=== PATIENT | female | born 1985 | race Caucasian/White ===

== ENCOUNTER 2018-05-05 00:24 | Emergency (ER) | payer OTHER ==
[~2018-05-05] VITALS: Ht 165.1 cm; Wt 81.0 kg
[~2018-05-05 00:24] MED LIST: IBUPROFEN400 MG PO; MOTRIN600 MG PO; NAPROSYN500 MG PO; PROAIR HFA8.5 GM IH
[2018-05-05 01:38] LABS: HEMATOCRIT 37.4 % (36.0-46.0); HEMOGLOBIN 13.5 G/DL (11.9-15.5); MCH 36.3 PG (29.0-34.0); MCHC 36.1 G/DL (30.0-36.0); MCV 100.5 FL (83-99); PLATELET COUNT 266 K/uL (156-360); RBC DIS.WIDTH-CV 12.3 % (11.8-14.6); RBC DIS.WIDTH-SD 45.8 % (39-53); RED BLOOD COUNT 3.72 M/uL (3.80-5.20); WHITE BLOOD COUNT 9.9 K/uL (4.1-10.2)
[2018-05-05 01:52] LABS: CHLORIDE 104 mEq/L (99-109); POTASSIUM 3.2 mEq/L (3.7-5.4); SODIUM 138 mEq/L (136-147)
[2018-05-05 01:54] LABS: GLUCOSE 112 mg/dL (70-99)
[2018-05-05 01:57] LABS: SERUM ETHYL ALCOHOL < 10 mg/dL
[2018-05-05 01:58] LABS: CREATININE 0.8 mg/dL (0.6-1.3); GFR ESTIMATE (CALCULATED) > 59 mL/min/
[2018-05-05 01:59] LABS: UREA NITROGEN (BUN) 12 mg/dL (9-23)
[2018-05-05 02:08] LABS: QUANTITATIVE HCG < 4.0 MIU/ML
[2018-05-05] MEDS ORDERED: ZOFRAN4 MG PO (03:29)
[2018-05-05 03:38] LABS: APPEARANCE CLEAR ((CLEAR)); BILIRUBIN NEGATIVE; BLOOD NEGATIVE; COLOR YELLOW ((YELLOW)); GLUCOSE (STRIP) NEGATIVE; KETONES 5; LEUKOCYTES NEGATIVE; NITRITE NEGATIVE; PROTEIN (STRIP) 100; SPECIFIC GRAVITY 1.031 (1.000-1.030); UROBILINOGEN 0.2 MG/DL (0.2-1.0)
[2018-05-05 03:46] LABS: BACTERIA NONE SEEN /HPF; EPITHELIAL CELLS 1+ /HPF; MUCUS 3+ /LPF; RED BLOOD CELLS 0-5 /HPF (0-5); UCUL ADDED? NO; WHITE BLOOD CELLS 0-5 /HPF (0-5)
[2018-05-05 04:00] VITALS: BP 104/60
== END 2018-05-05 04:00 | disposition home or self-care (01) ==
LOC: EME 00:24
PROVIDERS: Emergency Medicine
DX: F07.81 Postconcussional syndrome (principal); S00.93XA Contusion of unspecified part of head, initial encounter; S01.01XA Laceration without foreign body of scalp, initial encounter; M54.2 Cervicalgia; W01.10XA Fall on same level from slipping, tripping and stumbling with subsequent striking against unspecified object, initial encounter; E86.0 Dehydration; E87.6 Hypokalemia; R11.0 Nausea; R53.1 Weakness; D72.829 Elevated white blood cell count, unspecified; F17.200 Nicotine dependence, unspecified, uncomplicated
CPT/HCPCS: 70450; 72125; 80048; 81003; 84702; 85027; 99281; 99285; G0480; J0780; J1200; J7030